=== PATIENT | female | born 1965 | race Caucasian/White ===

== ENCOUNTER 2017-08-21 22:27 | Inpatient (IN) | payer OTHER, MEDICARE ==
[~2017-08-21] VITALS: Ht 160 cm; Wt 75.7 kg
[2017-08-21 22:33] VITALS: BP 96/63; PULSE 74; RESP 16; TEMP 97.4; O2SAT 97
[2017-08-21] MEDS ORDERED: NALOXONE HCL 0.4 MG/ML AMP ONE (22:42)
[2017-08-21] MEDS ORDERED: SODIUM CHLOR 0.9% 1000 ML INJ 1,000 ML IV ONE (22:48)
[2017-08-21 22:59] VITALS: RESP 17; O2SAT 95
[2017-08-21] MEDS ORDERED: NALOXONE HCL 0.4 MG/ML AMP IV PUSH ONE (23:00)
[2017-08-21] MEDS ORDERED: SODIUM CHLORIDE 0.9% FLUSH 10 ML FLUSH IVF PRN (23:00)
--- NOTE | 2017-08-21 23:17 | RADRPT ---
EXAM DATE/TIME: 08/21/2017 22:53 [place] COMPARISON: No previous studies available for comparison. INDICATIONS : Short of breath. MEDICAL HISTORY : None. SURGICAL HISTORY : None. ENCOUNTER: Initial ACUITY: 1 day PAIN SCORE: 0/10 LOCATION: Bilateral chest FINDINGS: A single view of the chest demonstrates the lungs to be symmetrically aerated without evidence of mas s, infiltrate or effusion. Mild basilar atelectasis. Previous fusion cervical spine. The cardiomedia stinal contours are unremarkable. Osseous structures are intact. CONCLUSION: 1. Mild basilar atelectasis. No effusion or pneumothorax. Eulogio Rabago MD on August 21, 2017 at 23:13 Board Certified Radiologist. This report was verified electronically.
--- NOTE | 2017-08-21 23:53 | PD ---
HPI Chief Complaint: OD/ Ingestion Time Seen by Provider: 22:48 Travel History International Travel<30 days: No Contact w/Intl Traveler<30days: No Traveled to known affect area: No History of Present Illness HPI 52-year-old female presents to the emergency department by EMS transport from home after boyfriend called the police stating that patient had intentionally overdosed and he was concerned about her. Patient here admits to overdosing on Zoloft and Klonopin after having an argument with her boyfriend. Patient states she does not want to live and did this intentionally. Patient denies other concerns or complaints. Patient states she ingested an unknown amount of mixed tablets from a large bottle around 4 or 5 PM. Patient also admits to drinking alcohol heavily today. PFS Past Medical History Narrative Medical Anxiety depression; tobacco use alcohol use; nursing notes reviewed Medical History: Unable to Obtain ?: Unknown Past Surgical History Surgical History: Unable to Obtain Social History Alcohol Use: Yes Tobacco Use: Yes Substance Use: No Allergies-Medications (Allergen,Severity, Reaction): Coded Allergies: No Known Allergies (Unverified , 08/21/17) Reported Meds & Prescriptions Reported Meds & Active Scripts Active Active Prescriptions or Reported Medications Unobtainable Review of Systems ROS Limitations: Clinical Condition, Altered Mental Status Physical Exam Narrative GENERAL: Well-developed well-nourished drowsy female in no acute respiratory distress mildly hypotensive triage blood pressure 99/56; [id number]. SKIN: Warm and dry. HEAD: Atraumatic. Normocephalic. EYES: Pupils equal and round. No scleral icterus. No injection or drainage. ENT: No nasal bleeding or discharge. Mucous membranes pink and moist. NECK: Trachea midline. No JVD. CARDIOVASCULAR: Regular rate and rhythm. RESPIRATORY: No accessory muscle use. Clear to auscultation. Breath sounds equal bilaterally. GASTROINTESTINAL: Abdomen soft, non-tender, nondistended. Hepatic and splenic margins not palpable. MUSCULOSKELETAL: Extremities without clubbing, cyanosis, or edema. No obvious deformities. NEUROLOGICAL: Awake and drowsy. No obvious cranial nerve deficits. Motor grossly within normal limits. Five out of 5 muscle strength in the arms and legs. Normal speech. PSYCHIATRIC: Appropriate mood and affect; insight and judgment normal. Data Data Last Documented VS Vital Signs Date Time Temp Pulse Resp B/P (MAP) Pulse Ox O2 Delivery O2 Flow Rate FiO2 08/22/17 01:11 78 16 101/60 (74) 99 Room Air 08/21/17 22:33 97.4 Orders Orders Naloxone Inj (Narcan Inj) (08/21/17 22:42) Electrocardiogram (08/21/17 22:48) Complete Blood Count With Diff (08/21/17 22:48) Comprehensive Metabolic Panel (08/21/17 22:48) Prothrombin Time / Inr (Pt) (08/21/17 22:48) Act Partial Throm Time (Ptt) (08/21/17 22:48) Urinalysis - C+S If Indicated (08/21/17 22:48) Chest, Single Ap (08/21/17 22:48) Blood Glucose (08/21/17 22:48) Iv Access Insert/Monitor (08/21/17 22:48) Ecg Monitoring (08/21/17 22:48) Oximetry (08/21/17 22:48) Naloxone Inj (Narcan Inj) (08/21/17 23:00) Sodium Chloride 0.9% Flush (Ns Flush) (08/21/17 23:00) Sodium Chlor 0.9% 1000 Ml Inj (Ns 1000 M (08/21/17 22:48) Call Poison Control (08/21/17 22:48) Drug Screen, Random Urine (08/21/17 22:48) Alcohol (Ethanol) (08/21/17 22:48) Salicylates (Aspirin) (08/21/17 22:48) Tylenol (Acetaminophen) (08/21/17 22:48) Sodium Chlor 0.9% 1000 Ml Inj (Ns 1000 M (08/22/17 01:00) Sodium Chlor 0.9% 1000 Ml Inj (Ns 1000 M (08/22/17 01:15) Admit Order (Ed Use Only) (08/22/17 ) Rhinologist / Telemetry PEGGY.Q8H (08/22/17 01:49) Activity Bed Rest (08/22/17 01:49) Notify Dr: Other (08/22/17 01:49) Admit To Inpatient (08/22/17 ) Vital Signs (Adult) Q4H (08/22/17 01:49) Activity Oob With Assistance (08/22/17 01:49) Rhinologist / Telemetry .CONTINUOUS (08/22/17 01:49) Sodium Chlor 0.9% 1000 Ml Inj (Ns 1000 M (08/22/17 01:49) Sodium Chloride 0.9% Flush (Ns Flush) (08/22/17 02:00) Sodium Chloride 0.9% Flush (Ns Flush) (08/22/17 09:00) Acetaminophen (Tylenol) (08/22/17 02:00) Naloxone Inj (Narcan Inj) (08/22/17 02:00) Docusate Sodium-Senna (Traci-Colace) (08/22/17 09:00) Magnesium Hydroxide Liq (Milk Of Magnesi (08/22/17 02:00) Sennosides (Senokot) (08/22/17 02:00) Bisacodyl Supp (Dulcolax Supp) (08/22/17 02:00) Lactulose Liq (Lactulose Liq) (08/22/17 02:00) Inpatient Certification (08/22/17 ) Consult Psychiatry (08/22/17 ) Ondansetron Odt (Zofran Odt) (08/22/17 02:00) Labs Laboratory Tests Test 08/22/17 00:22 White Blood Count 8.4 TH/MM3 Red Blood Count 4.91 MIL/MM3 Hemoglobin 15.0 GM/DL Hematocrit 44.2 % Mean Corpuscular Volume 89.9 FL Mean Corpuscular Hemoglobin 30.6 PG Mean Corpuscular Hemoglobin Concent 34.0 % Red Cell Distribution Width 13.3 % Platelet Count 283 TH/MM3 Mean Platelet Volume 7.2 FL Neutrophils (%) (Auto) 47.6 % Lymphocytes (%) (Auto) 43.5 % Monocytes (%) (Auto) 6.7 % Eosinophils (%) (Auto) 1.3 % Basophils (%) (Auto) 0.9 % Neutrophils # (Auto) 4.0 TH/MM3 Lymphocytes # (Auto) 3.7 TH/MM3 Monocytes # (Auto) 0.6 TH/MM3 Eosinophils # (Auto) 0.1 TH/MM3 Basophils # (Auto) 0.1 TH/MM3 CBC Comment DIFF FINAL Differential Comment Prothrombin Time 9.7 SEC Prothromb Time International Ratio 1.0 RATIO Activated Partial Thromboplast Time 27.5 SEC Urine Color YELLOW Urine Turbidity CLEAR Urine pH 5.0 Urine Specific [place] 1.013 Urine Protein NEG mg/dL Urine Glucose (UA) NEG mg/dL Urine Ketones NEG mg/dL Urine Occult Blood TRACE Urine Nitrite NEG Urine Bilirubin NEG Urine Urobilinogen LESS THAN 2.0 MG/DL Urine Leukocyte Esterase NEG Urine RBC LESS THAN 1 /hpf Urine WBC 1 /hpf Urine Hyaline Casts 6 /lpf Urine Mucus FEW /lpf Microscopic Urinalysis Comment CULT NOT INDICATED Blood Urea Nitrogen 9 MG/DL Creatinine 0.62 MG/DL Random Glucose 81 MG/DL Total Protein 7.1 GM/DL Albumin 3.7 GM/DL Calcium Level 8.2 MG/DL Alkaline Phosphatase 67 U/L Aspartate Amino Transf (AST/SGOT) 19 U/L Alanine Aminotransferase (ALT/SGPT) 25 U/L Total Bilirubin 0.3 MG/DL Sodium Level 142 MEQ/L Potassium Level 3.5 MEQ/L Chloride Level 106 MEQ/L Carbon Dioxide Level 24.7 MEQ/L Anion Gap 11 MEQ/L Estimat Glomerular Filtration Rate 100 ML/MIN Salicylates Level 3.1 MG/DL Urine Opiates Screen NEG Acetaminophen Level LESS THAN 2.0 MCG/ML Urine Barbiturates Screen NEG Urine Amphetamines Screen NEG Urine Benzodiazepines Screen POS Urine Cocaine Screen NEG Urine Cannabinoids Screen NEG Ethyl Alcohol Level 118 MG/DL [facility] Medical Decision Making Medical Screen Exam Complete: Yes Emergency Medical Condition: Yes Medical Record Reviewed: Yes Interpretation(s) Alcohol: 118 Urine drug screen positive for benzodiazepines Last Impressions Chest X-Ray 08/21/17 2248 Signed Impressions: Service Date/Time: Monday, August 21, 2017 22:53 - CONCLUSION: 1. Mild basilar atelectasis. No effusion or pneumothorax. Eulogio Rabago MD CBC & BMP Diagram 08/22/17 00:22 Total Protein 7.1, Albumin 3.7, Calcium Level 8.2 L, Alkaline Phosphatase 67, Aspartate Amino Transf (AST/SGOT) 19, Alanine Aminotransferase (ALT/SGPT) 25, Total Bilirubin 0.3 Vital Signs Date Time Temp Pulse Resp B/P (MAP) Pulse Ox O2 Delivery O2 Flow Rate FiO2 08/22/17 01:11 78 16 101/60 (74) 99 Room Air 08/22/17 01:04 79 16 84/52 (63) 97 Room Air 08/21/17 22:59 17 95 Room Air 08/21/17 22:33 97.4 74 16 96/63 (93) 19 Differential Diagnosis Polysubstance ingestion, intentional versus accidental overdose, alcohol intoxication, depression, suicidal ideation, serotonin syndrome, metabolic disturbance, electrolyte disturbance, arrhythmia Narrative Course Patient placed on pvc monitor IV access obtained patient administered 1 L normal saline also normal Narcan 0.4 mg IV with minimal effect Poison control contacted Patient administered additional liter of normal saline systolic blood pressure 84 mmHg mentation unchanged GCS 14 to 15 At 1:40 AM patient has had issues where she is and why she is here. She is aware she is at the hospital she noticed that yesterday she intentionally took sertraline and Klonopin as an overdose along with alcohol after having an argument/fight with her significant other. Patient's blood pressure has improved after a total of 3 L of normal saline. Patient will require medical admission to clear effects of polysubstance ingestion for ongoing cardiac monitoring and observation and then will require evaluation by psychiatry for depression and suicidal ideation. Patient is a Bravo act. Physician Communication Physician Communication discussed with Dr Whitman for admission Diagnosis Primary Impression: Polysubstance overdose Qualified Codes: T50.902A - Poisoning by unspecified drugs, medicaments and biological substances, intentional self-harm, initial encounter Additional Impression: Depression Admitting Information Admitting Physician Requests: Admit Scripts Unable to Obtain Active Prescriptions or Reported Meds Octavia Menendez MD August 21, 2017 23:53
[2017-08-22] VITALS (7 sets, daily range): BP systolic 84–125; BP diastolic 52–78; PULSE 57–88; RESP 16; TEMP 97.1–98.7; O2SAT 93–99
[2017-08-22 00:40] LABS: BASOPHIL # 0.1 TH/MM3 (0-0.2); BASOPHIL % 0.9 % (0.0-2.0); EOSINOPHIL # 0.1 TH/MM3 (0-0.4); EOSINOPHIL % 1.3 % (0.0-4.0); HEMATOCRIT 44.2 % (35.0-46.0); LYMPH % 43.5 % (9.0-44.0); LYMPHOCYTE # 3.7 TH/MM3 (1.0-4.8); MEAN CELL VOLUME 89.9 FL (80.0-100.0); MEAN CORPUSCULAR HEMOGLOBIN 30.6 PG (27.0-34.0); MEAN PLATELET VOLUME 7.2 FL (7.0-11.0); MONO % 6.7 % (0.0-8.0); MONOCYTE # 0.6 TH/MM3 (0-0.9); NEUT % 47.6 % (16.0-70.0); PLATELET COUNT 283 TH/MM3 (150-450); RED BLOOD COUNT 4.91 MIL/MM3 (4.00-5.30); RED CELL DISTRIBUTION WIDTH 13.3 % (11.6-17.2); WHITE BLOOD COUNT 8.4 TH/MM3 (4.0-11.0)
[2017-08-22 00:46] LABS: BILIRUBIN, URINE NEG (NEG); BLOOD, URINE TRACE (NEG); GLUCOSE,URINE NEG (NEG); HYALINE CAST, URINE 6 /lpf (RARE); KETONE, URINE NEG (NEG); MUCUS URINE FEW /lpf (OCC); NITRITE,URINE NEG (NEG); URINE COLOR YELLOW (YELLW/STRAW); URINE LEUKOCYTE ESTERASE NEG (NEG)
[2017-08-22 00:59] LABS: ALBUMIN 3.7 GM/DL (3.4-5.0); ALT (GPT) 25 U/L (10-53); AST (GOT) 19 U/L (15-37); BICARBONATE 24.7 MEQ/L (21.0-32.0); BLOOD UREA NITROGEN 9 MG/DL (7-18); CALCIUM 8.2 MG/DL (8.5-10.1); CHLORIDE 106 MEQ/L (98-107); CREATININE 0.62 MG/DL (0.50-1.00); GLOMERULAR FILTRATION RATE 100 ML/MIN (>89); GLUCOSE,RANDOM 81 MG/DL (74-106); PROTHROMBIN TIME - PATIENT 9.7 SEC (9.8-11.6); SODIUM (NA) 142 MEQ/L (136-145)
[2017-08-22] MEDS ORDERED: SODIUM CHLOR 0.9% 1000 ML INJ 1,000 ML IV ONE ×2 (01:00→01:15)
[2017-08-22 01:02] LABS: ALKALINE PHOSPHATASE 67 U/L (45-117); TOTAL BILIRUBIN ADULT 0.3 MG/DL (0.2-1.0); TOTAL PROTEIN 7.1 GM/DL (6.4-8.2)
[2017-08-22 01:03] LABS: ACETAMINOPHEN LESS THAN 2.0 MCG/ML (10.0-30.0)
[2017-08-22] MEDS ORDERED: SODIUM CHLORIDE 0.9% FLUSH 10 ML FLUSH IV FLUSH PRN (02:00)
[2017-08-22] MEDS ORDERED: ACETAMINOPHEN 325 MG TAB PO PRN (02:00)
[2017-08-22] MEDS ORDERED: BISACODYL 10 MG SUPP RECTAL PRN (02:00)
[2017-08-22] MEDS ORDERED: LACTULOSE SYRUP 20 GM/30 ML CUP PO PRN (02:00)
[2017-08-22] MEDS ORDERED: MAGNESIUM HYDROXIDE SUSP 30 ML CUP PO PRN (02:00)
[2017-08-22] MEDS ORDERED: SENNOSIDES 8.6 MG TAB PO PRN (02:00)
[2017-08-22] MEDS ORDERED: NALOXONE HCL 0.4 MG/ML AMP IV PUSH PRN (02:00)
[2017-08-22] MEDS ORDERED: ONDANSETRON ODT 4 MG TAB PO PRN (02:00)
[2017-08-22] MEDS: SODIUM CHLOR 0.9% 1000 ML INJ 1,000 ML IV SCH ×2 (02:13→11:49)
[2017-08-22] MEDS ORDERED: DOCUSATE SODIUM 50 MG/SENNA 8.6 MG TAB PO SCH (09:00)
[2017-08-22] MEDS ORDERED: SODIUM CHLORIDE 0.9% FLUSH 10 ML FLUSH IV FLUSH SCH (09:00)
--- NOTE | 2017-08-22 09:57 | HHI.HP ---
[facility] Unknown Admission Diagnosis polysubtance overdose; depression/suicidal ideation Diagnoses: Chief Complaint: Taking a bunch of pills Travel History International Travel<30 Days: No Contact w/Intl Traveler <30 Da: No Traveled to Known Affected Are: No History of Present Illness 52-year-old white female admitted for intentional drug overdose. History is obtained from emergency room records, partially from the patient, patient is a poor historian. Per the emergency room department, patient was brought to the emergency department, told emergency room physician that she intentionally took drugs wanting to kill herself in the midst of an argument with her boyfriend. At the bedside today the patient affirms that she had an organ with her boyfriend and does admit to taking a "handful" of sertraline and Klonopin, unable to exactly quantify how many pills, but says she was not trying to kill herself. When asked if she endorsed suicidal ideation to the emergency room department staff, she says she does not know. Patient denies any nausea vomiting diarrhea. Says that her Klonopin pills are 1 mg each and took at least 5 of those. Says she takes Klonopin for anxiety. Denies any other substantial medical illnesses otherwise. Emergency department records detail that the patient had a systolic blood pressure around 84, which normalized after 3 L of normal saline. Blood work in the emergency department is unremarkable except for an elevated blood alcohol level. Review of Systems Except as stated in HPI: all other systems reviewed are Neg Past Family Social History Past Medical History Anxiety Allergies: Coded Allergies: No Known Allergies (Unverified , 08/21/17) Family History Uterine cancer in sister Social History Lives with her boyfriend Jesús. 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 Currently smokes. Says he drinks about 5 beers about once or twice a month. Physical Exam Vital Signs Vital Signs Date Time Temp Pulse Resp B/P (MAP) Pulse Ox O2 Delivery O2 Flow Rate FiO2 08/22/17 08:00 98.0 63 16 101/65 (77) 93 08/22/17 08:00 66 08/22/17 04:31 97.1 74 16 105/65 (78) 94 08/22/17 03:43 08/22/17 03:39 88 16 104/55 (71) 93 08/22/17 01:11 78 16 101/60 (74) 99 Room Air 08/22/17 01:04 79 16 84/52 (63) 97 Room Air 08/21/17 22:59 17 95 Room Air 08/21/17 22:33 97.4 74 16 96/63 (74) 97 Physical Exam VS: afebrile GENERAL: Lying in bed, drowsy SKIN: Warm and dry. EYES: Pupils equal and round. No scleral icterus. No injection or drainage. ENT: No nasal bleeding or discharge. Mucous membranes pink and moist. CARDIOVASCULAR: Regular rate and rhythm. no murmurs RESPIRATORY: No accessory muscle use. Clear to auscultation. Breath sounds equal bilaterally. GASTROINTESTINAL: Abdomen soft, non-tender, nondistended. Extremities: No clubbing, cyanosis, or edema. No obvious deformities. MUSCULOSKELETAL: grossly intact ROM with 4/5 strength in upper extremities proximally, 5 out of 5 in lower extremities proximally NEUROLOGICAL: Sleeping, awoken, seems drowsy; no obvious cranial nerve deficits. No facial droop nor slurred speech noted. Brisk 2+ patellar reflexes bilaterally PSYCHIATRIC: Appropriate mood and affect; insight and judgment normal. Laboratory Laboratory Tests Test 08/22/17 00:22 White Blood Count 8.4 Red Blood Count 4.91 Hemoglobin 15.0 Hematocrit 44.2 Mean Corpuscular Volume 89.9 Mean Corpuscular Hemoglobin 30.6 Mean Corpuscular Hemoglobin Concent 34.0 Red Cell Distribution Width 13.3 Platelet Count 283 Mean Platelet Volume 7.2 Neutrophils (%) (Auto) 47.6 Lymphocytes (%) (Auto) 43.5 Monocytes (%) (Auto) 6.7 Eosinophils (%) (Auto) 1.3 Basophils (%) (Auto) 0.9 Neutrophils # (Auto) 4.0 Lymphocytes # (Auto) 3.7 Monocytes # (Auto) 0.6 Eosinophils # (Auto) 0.1 Basophils # (Auto) 0.1 CBC Comment DIFF FINAL Differential Comment Prothrombin Time 9.7 Prothromb Time International Ratio 1.0 Activated Partial Thromboplast Time 27.5 Urine Color YELLOW Urine Turbidity CLEAR Urine pH 5.0 Urine Specific [place] 1.013 Urine Protein NEG Urine Glucose (UA) NEG Urine Ketones NEG Urine Occult Blood TRACE Urine Nitrite NEG Urine Bilirubin NEG Urine Urobilinogen LESS THAN 2.0 Urine Leukocyte Esterase NEG Urine RBC LESS THAN 1 Urine WBC 1 Urine Hyaline Casts 6 Urine Mucus FEW Microscopic Urinalysis Comment CULT NOT INDICATED Blood Urea Nitrogen 9 Creatinine 0.62 Random Glucose 81 Total Protein 7.1 Albumin 3.7 Calcium Level 8.2 Alkaline Phosphatase 67 Aspartate Amino Transf (AST/SGOT) 19 Alanine Aminotransferase (ALT/SGPT) 25 Total Bilirubin 0.3 Sodium Level 142 Potassium Level 3.5 Chloride Level 106 Carbon Dioxide Level 24.7 Anion Gap 11 Estimat Glomerular Filtration Rate 100 Salicylates Level 3.1 Urine Opiates Screen NEG Acetaminophen Level LESS THAN 2.0 Urine Barbiturates Screen NEG Urine Amphetamines Screen NEG Urine Benzodiazepines Screen POS Urine Cocaine Screen NEG Urine Cannabinoids Screen NEG Ethyl Alcohol Level 118 Result Diagram: 08/22/17 0022 08/22/17 0022 Imaging Last Impressions Chest X-Ray 08/21/17 2248 Signed Impressions: Service Date/Time: Monday, August 21, 2017 22:53 - CONCLUSION: 1. Mild basilar atelectasis. No effusion or pneumothorax. Eulogio Rabago MD Caprini VTE Risk Assessment Caprini VTE Risk Assessment: No/Low Risk (score <= 1) Caprini Risk Assessment Model Point Value = 1 Point Value = 2 Point Value = 3 Point Value = 5 Age 41-60 Minor surgery BMI > 25 kg/m2 Swollen legs Varicose veins or History of unexplained or recurrent spontaneous Oral contraceptives or hormone replacement Sepsis (< 1 month) Serious lung disease, including pneumonia (< 1 month) Abnormal pulmonary function Acute myocardial infarction Congestive heart failure (< 1 month) History of inflammatory bowel disease Medical patient at bed rest Age 61-74 Arthroscopic surgery Major open surgery (> 45 min) Laparoscopic surgery (> 45 min) Malignancy Confined to bed (> 72 hours) Immobilizing plaster cast Central venous access Age >= 75 History of VTE Family history of VTE Factor V Leiden Prothrombin [id number] Lupus anticoagulant Anticardiolipin antibodies Elevated serum homocysteine Heparin-induced thrombocytopenia Other congenital or acquired thrombophilia Stroke (< 1 month) Elective arthroplasty Hip, pelvis, or leg fracture Acute spinal cord injury (< 1 month) Prophylaxis Regimen Total Risk Factor Score Risk Level Prophylaxis Regimen 0-1 Low Early ambulation 2 Moderate Order ONE of the following: *Sequential Compression Device (SCD) *Heparin 5000 units SQ BID 3-4 Higher Order ONE of the following medications: *Heparin 5000 units SQ TID *Enoxaparin/Lovenox 40 mg SQ daily (WT < 150 kg, CrCl > 30 mL/min) *Enoxaparin/Lovenox 30 mg SQ daily (WT < 150 kg, CrCl > 10-29 mL/min) *Enoxaparin/Lovenox 30 mg SQ BID (WT < 150 kg, CrCl > 30 mL/min) AND/OR *Sequential Compression Device (SCD) 5 or more Highest Order ONE of the following medications: *Heparin 5000 units SQ TID (Preferred with Epidurals) *Enoxaparin/Lovenox 40 mg SQ daily (WT < 150 kg, CrCl > 30 mL/min) *Enoxaparin/Lovenox 30 mg SQ daily (WT < 150 kg, CrCl > 10-29 mL/min) *Enoxaparin/Lovenox 30 mg SQ BID (WT < 150 kg, CrCl > 30 mL/min) AND *Sequential Compression Device (SCD) Assessment and Plan Assessment and Plan 52-year-old white female admitted for drug overdose Drug overdose -Poison control contacted emergently by the emergency department staff, placed on supportive care with IV fluids and telemetry -Blood work so far is unremarkable, EKG which had been reviewed is also unremarkable -Clinically stable overall apart from some drowsiness Suspected intentional overdose -Patient placed on Bravo act, psychiatry consultation pending SCDs Addendum: Patient has had a relatively smooth recovery from her drug overdose faster than expected. Is medically stable to be discharged to med/psych. Physician Certification 2 Midnight Certification Type: Admission for Inpatient Services Order for Inpatient Services The services are ordered in accordance with Medicare regulations or non- Medicare payer requirements, as applicable. In the case of services not specified as inpatient-only, they are appropriately provided as inpatient services in accordance with the 2-midnight benchmark. Estimated LOS (days): 2 2 days is the estimated time the patient will need to remain in the hospital, assuming treatment plan goals are met and no additional complications. Post-Hospital Plan: Not yet determined Johnson Coates MD August 22, 2017 09:57
--- NOTE | 2017-08-22 14:03 | PD.PSY.CON ---
Provisional Diagnosis Admission Date August 22, 2017 at 01:52 Arco I. Major depressive disorder, recurrent, severe, without psychosis, panic disorder , alcohol use disorder Arco II. Deferred Arco III. No significant medical history Arco IV. Conflict with fianc conflicts with fianc Arco V. 40 History of Present Illness Service Psychiatry Consult Requested By Medicine Reason for Consult Suicidal attempt Primary Care Physician Unknown HPI The patient is a 52-year-old woman, domiciled in [place] with her fianc, unemployed, with psychiatric history of depression, panic disorder, 1 previous psychiatric hospitalization in 1987 in [place], one previous suicide attempt by overdosing, the patient reports that she is in clonazepam 1 mg 3 times daily prescribed by PCP, no significant medical history, who was admitted for intentional drug overdose. History obtained from emergency room records, partially from the patient, patient is a poor historian.Per the emergency room department, patient was brought to the emergency department, told emergency room physician that she intentionally took drugs wanting to kill herself in the midst of an argument with her boyfriend. At the bedside today the patient affirms that she had an organ with her boyfriend and does admit to taking a "handful" of sertraline and Klonopin, unable to exactly quantify how many pills, but says she was not trying to kill herself. When asked if she endorsed suicidal ideation to the emergency room department staff, she says she does not know. Patient denies any nausea vomiting diarrhea. Says that her Klonopin pills are 1 mg each and took at least 5 of those. Says she takes Klonopin for anxiety. Denies any other substantial medical illnesses otherwise. Emergency department records detail that the patient had a systolic blood pressure around 84, which normalized after 3 L of normal saline. Blood work in the emergency department is unremarkable except for an elevated blood alcohol level. On psychiatric evaluation today the patient is oppositional, superficially cooperative, she reports that she overdosed with suicidal intention after an argument with fianc. Patient does not elaborate about the recent circumstances behind her emotions and because of her argument. She said that she is tired or living. She says that she is tired of her boyfriend. The patient contracted for safety, stating that she does not want to anymore, but she does not seem to be quite reliable. She is oriented 3. She reports occasional use of alcohol, denies the use of illegal drugs. Review of Systems Constitutional: DENIES: Diaphoretic episodes, Fatigue, Fever, Weight gain, Weight loss, Chills, Dizziness, Change in appetite, Night Sweats Endocrine: DENIES: Abnorml menstrual pattern, Heat/cold intolerance, Polydipsia , Polyuria, Polyphagia Eyes: DENIES: Blurred vision, Diplopia, Eye inflammation, Eye pain, Vision loss , Photosensitivity, Double Vision Ears, nose, mouth, throat: DENIES: Tinnitus, Hearing loss, Vertigo, Nasal discharge, Oral lesions, Throat pain, Hoarseness, Ear Pain, Running Nose, Epistaxis, Sinus Pain, Toothache, Odynophagia Respiratory: DENIES: Apneas, Cough, Snoring, Wheezing, Hemoptysis, Sputum production, Shortness of breath Cardiovascular: DENIES: Chest pain, Palpitations, Syncope, Dyspnea on Exertion , PND, Lower Extremity Edema, Orthopnea, Claudication Gastrointestinal: DENIES: Abdominal pain, Black stools, Bloody stools, Constipation, Diarrhea, Nausea, Vomiting, Difficulty Swallowing, Anorexia Genitourinary: DENIES: Abnormal vaginal bleeding, Dysmenorrhea, Dyspareunia, Sexual dysfunction, Urinary frequency, Urinary incontinence, Urgency, Hematuria , Dysuria, Nocturia, Vaginal discharge Musculoskeletal: DENIES: Joint pain, Muscle aches, Stiffness, Joint Swelling, Back pain, Neck pain Integumentary: DENIES: Abnormal pigmentation, Pruritus, Rash, Nail changes, Breast masses, Breast skin changes, Nipple discharge Hematologic/lymphatic: DENIES: Bruising, Lymphadenopathy Immunologic/allergic: DENIES: Eczema, Urticaria Neurologic: DENIES: Abnormal gait, Headache, Localized weakness, Paresthesias, Seizures, Speech Problems, Tremor, Poor Balance Psychiatric: COMPLAINS OF: Depression, Suicidal Ideation, DENIES: Anxiety, Confusion, Mood changes, Hallucinations, Agitation, Homicidal Ideation, Delusions Past Family Social History Coded Allergies: No Known Allergies (Unverified , 08/21/17) Unable to Obtain Active Prescriptions or Reported Meds Current Medications Medications (Trade) Dose Ordered Sig/Fred Route Start Time Stop Time Status Last Admin Sodium Chloride 1,000 ml @ 100 mls/hr Q10H IV 08/22/17 01:49 08/22/17 02:13 (NS Flush) 2 ml UNSCH PRN IV FLUSH 08/22/17 02:00 (NS Flush) 2 ml BID IV FLUSH 08/22/17 09:00 (Tylenol) 650 mg Q4H PRN PO 08/22/17 02:00 (Zofran Odt) 4 mg Q6H PRN PO 08/22/17 02:00 (Narcan Inj) 0.4 mg UNSCH PRN IV PUSH 08/22/17 02:00 (Traci-Colace) 1 tab BID PO 08/22/17 09:00 (Milk Of Magnesia Liq) 30 ml Q12H PRN PO 08/22/17 02:00 (Senokot) 17.2 mg Q12H PRN PO 08/22/17 02:00 (Dulcolax Supp) 10 mg DAILY PRN RECTAL 08/22/17 02:00 (Lactulose Liq) 30 ml DAILY PRN PO 08/22/17 02:00 (Pneumovax-23 Inj) 25 mcg ONCE ONCE IM 08/23/17 10:00 08/23/17 10:01 Family Psych History Mother has anxiety Social History Patient was born in [place], she lives in [facility], unemployed, she has a 32 y/ o daughter Patient's Strengths (min. 2) Under observation Physical Exam Patient is sedated, psychomotor retardation Vital Signs Vital Signs Date Time Temp Pulse Resp B/P (MAP) Pulse Ox O2 Delivery O2 Flow Rate FiO2 08/22/17 12:00 98.7 62 16 113/75 (88) 93 08/22/17 01:11 Room Air I/O 08/22/17 08/22/17 08/23/17 08:00 16:00 00:00 Intake Total 3000 ml Balance 3000 ml Lab Results Test 08/22/17 00:22 White Blood Count 8.4 TH/MM3 Red Blood Count 4.91 MIL/MM3 Hemoglobin 15.0 GM/DL Hematocrit 44.2 % Mean Corpuscular Volume 89.9 FL Mean Corpuscular Hemoglobin 30.6 PG Mean Corpuscular Hemoglobin Concent 34.0 % Red Cell Distribution Width 13.3 % Platelet Count 283 TH/MM3 Mean Platelet Volume 7.2 FL Neutrophils (%) (Auto) 47.6 % Lymphocytes (%) (Auto) 43.5 % Monocytes (%) (Auto) 6.7 % Eosinophils (%) (Auto) 1.3 % Basophils (%) (Auto) 0.9 % Neutrophils # (Auto) 4.0 TH/MM3 Lymphocytes # (Auto) 3.7 TH/MM3 Monocytes # (Auto) 0.6 TH/MM3 Eosinophils # (Auto) 0.1 TH/MM3 Basophils # (Auto) 0.1 TH/MM3 CBC Comment DIFF FINAL Differential Comment Prothrombin Time 9.7 SEC Prothromb Time International Ratio 1.0 RATIO Activated Partial Thromboplast Time 27.5 SEC Urine Color YELLOW Urine Turbidity CLEAR Urine pH 5.0 Urine Specific Steward[place] 1.013 Urine Protein NEG mg/dL Urine Glucose (UA) NEG mg/dL Urine Ketones NEG mg/dL Urine Occult Blood TRACE Urine Nitrite NEG Urine Bilirubin NEG Urine Urobilinogen LESS THAN 2.0 MG/DL Urine Leukocyte Esterase NEG Urine RBC LESS THAN 1 /hpf Urine WBC 1 /hpf Urine Hyaline Casts 6 /lpf Urine Mucus FEW /lpf Microscopic Urinalysis Comment CULT NOT INDICATED Blood Urea Nitrogen 9 MG/DL Creatinine 0.62 MG/DL Random Glucose 81 MG/DL Total Protein 7.1 GM/DL Albumin 3.7 GM/DL Calcium Level 8.2 MG/DL Alkaline Phosphatase 67 U/L Aspartate Amino Transf (AST/SGOT) 19 U/L Alanine Aminotransferase (ALT/SGPT) 25 U/L Total Bilirubin 0.3 MG/DL Sodium Level 142 MEQ/L Potassium Level 3.5 MEQ/L Chloride Level 106 MEQ/L Carbon Dioxide Level 24.7 MEQ/L Anion Gap 11 MEQ/L Estimat Glomerular Filtration Rate 100 ML/MIN Salicylates Level 3.1 MG/DL Urine Opiates Screen NEG Acetaminophen Level LESS THAN 2.0 MCG/ML Urine Barbiturates Screen NEG Urine Amphetamines Screen NEG Urine Benzodiazepines Screen POS Urine Cocaine Screen NEG Urine Cannabinoids Screen NEG Ethyl Alcohol Level 118 MG/DL Mental Status Examination Appearance: Appropriate Consciousness: Alert Orientation: x4 Motor Activity: Normal gait Speech: Unremarkable Language: Adequate Fund of Knowledge: Adequate Attention and Concentration: Adequate Memory: Unremarkable Mood: Sad, Oppositional Affect: Irritable Thought Process & Associations: Intact Thought Content: Appropriate Hallucination Type: None Delusion Type: None Suicidal Ideation: Yes Suicidal Plan: No Suicidal Intention: No Homicidal Ideation: No Homicidal Plan: No Homicidal Intention: No Insight: Poor Judgment: Poor Assessment & Plan Problem List: (1) Major depressive disorder, recurrent ICD Codes: F33.9 - Major depressive disorder, recurrent, unspecified Assessment & Plan: On psychiatric evaluation the patient is oppositional, resistant, very irritable, stating that she overdosed with suicidal intentions because "I am tired of my fianc on my life". The patient does not elaborate about the reason of her frustration and depression. Even though she denies current suicidal ideation, she does not seem to be reliable. The patient is a psychiatric hospitalization for stabilization and safety. Continue CIWA protocol. No additional psychotropics recommended at this moment. Supportive psychotherapy provided. Continue with a sitter in the medical floor. Transfer to psychiatry once medically appropriate. Assessment & Plan Estimated LOS: days Shaquille Reese MD August 22, 2017 14:03
--- NOTE | 2017-08-22 18:01 | EKG ---
Date Performed: 08/21/2017 Time Performed: 22:39:04 PTAGE: 52 years EKG: Sinus rhythm NORMAL ECG NO PREVIOUS TRACING DOCTOR: Dennise Sandoval Interpretating Date/Time 08/22/2017 17:59:57
[2017-08-23] MEDS ORDERED: PNEUMOCOCCAL POLYVALENT INJ 25 MCG/0.5 ML SYR IM ONE (10:00)
== END 2017-08-22 19:13 | DRG 918 ==
LOC: NEPC 22:27 → NEDA 08-22 01:52 → N04A 08-22 03:53
PROVIDERS: ADMIT Hospitalist; ATTEND Hospitalist
DX: T43.222A Poisoning by selective serotonin reuptake inhibitors, intentional self-harm, initial encounter (principal); F33.9 Major depressive disorder, recurrent, unspecified; I95.2 Hypotension due to drugs; T42.4X2A Poisoning by benzodiazepines, intentional self-harm, initial encounter; T51.0X2A Toxic effect of ethanol, intentional self-harm, initial encounter; R41.82 Altered mental status, unspecified; F17.200 Nicotine dependence, unspecified, uncomplicated; F41.0 Panic disorder [episodic paroxysmal anxiety]; Y90.5 Blood alcohol level of 100-119 mg/100 ml; Z91.5 Personal history of self-harm
CPT/HCPCS: 71045; 80053; 80307; 81001; 85025; 85610; 85730; 93005; J2310; J7030

== ENCOUNTER 2017-08-22 19:50 | Inpatient (IN) | payer OTHER, MEDICARE ==
[2017-08-22 20:00] VITALS: BP 108/63; PULSE 61; RESP 16; TEMP 98; O2SAT 95
[2017-08-22] MEDS ORDERED: MAGNESIUM HYDROXIDE SUSP 30 ML CUP PO PRN (20:15)
[2017-08-22] MEDS ORDERED: ALUMINUM/MAGNESIUM/SIMETH 30 ML CUP PO PRN (20:15)
[2017-08-22] MEDS ORDERED: ACETAMINOPHEN 325 MG TAB PO PRN (20:15)
[2017-08-22] MEDS ORDERED: NICOTINE 21 MG/24 HR PATCH T-DERMAL PRN (20:15)
[2017-08-22] MEDS ORDERED: LORazepam 2 MG/ML VIAL IV PUSH PRN ×4 (20:15)
[2017-08-22] MEDS ORDERED: FLUMAZENIL 0.5 MG/5 ML VIAL IV PUSH PRN (20:15)
[2017-08-22] MEDS ORDERED: LORazepam 1 MG TAB PO PRN (20:15)
[2017-08-22] MEDS ORDERED: LORazepam 2 MG TAB PO PRN (20:15)
[2017-08-22] MEDS ORDERED: REMOVE OLD PATCH T-DERMAL PRN (21:15)
[2017-08-23 06:00] VITALS: BP 117/64; PULSE 61; RESP 14; TEMP 98.2; O2SAT 93
--- NOTE | 2017-08-23 08:47 | PD.CONS ---
[facility] By Reason for Consult Continue follow for medical floor Primary Care Physician Unknown Diagnoses: History of Present Illness 52-year-old female with past medical history significant for anxiety and depression who presented to emergency department on 08/22 after intentionally ingesting "handful" of sertraline and Klonopin. On presentation to the emergency department she was hypotensive with a systolic BP around 84, provided with fluid boluses. Poison control was contacted by emergency department staff , monitored on telemetry, lab work and EKG unremarkable. She was cleared medically to be discharged to medical psychiatry unit. [facility] have been consulted to continue monitoring while she is in psychiatry department. She is seen and examined in her room with sitter at bedside, resting with eyes closed but arouses easily to voice. She reports feeling better although still has some ongoing dizziness with changes of position which usually resolves after several seconds. She denies any fevers, chills, nausea, vomiting, diarrhea, headache, visual changes, chest pain, shortness of breath or cough. She reports no other medical history other than psychiatric history including anxiety, agoraphobia, and depression. She voices no other acute concerns or complaints today. Review of Systems Except as stated in HPI: all other systems reviewed are Neg Past Family Social History Allergies: Coded Allergies: No Known Allergies (Unverified , 08/21/17) Past Medical History Agoraphobia Anxiety Depression Past Surgical History Denies surgical history Reported Medications Reported Meds & Active Scripts Active Active Prescriptions or Reported Medications Unobtainable Active Ordered Medications Current Medications Medications (Trade) Dose Ordered Sig/Fred Route Start Time Stop Time Status Last Admin (Tylenol) 650 mg Q4H PRN PO 08/22/17 20:15 (Milk Of Magnesia Liq) 30 ml DAILY PRN PO 08/22/17 20:15 (Mag-Al Plus Susp Liq) 30 ml Q6H PRN PO 08/22/17 20:15 (Habitrol 21 Mg Patch.24 Hr) 1 patch DAILY PRN T-DERMAL 08/22/17 20:15 (Folate) 1 mg DAILY PO 08/23/17 09:00 08/28/17 08:59 08/23/17 09:00 (Vitamin B1) 100 mg DAILY PO 08/23/17 09:00 08/23/17 09:00 (Theragran M Tab) 1 tab DAILY PO 08/23/17 09:00 08/28/17 08:59 08/23/17 09:00 (Romazicon Inj) 0.2 mg Q1M PRN IV PUSH 08/22/17 20:15 (Ativan) 1 mg Q4H PRN PO 08/22/17 20:15 (Ativan Inj) 1 mg Q4H PRN IV PUSH 08/22/17 20:15 (Ativan) 2 mg Q2H PRN PO 08/22/17 20:15 (Ativan Inj) 2 mg Q2H PRN IV PUSH 08/22/17 20:15 (Ativan Inj) 2 mg Q1H PRN IV PUSH 08/22/17 20:15 (Ativan Inj) 2 mg Q15M PRN IV PUSH 08/22/17 20:15 Miscellaneous Information 1 DAILY PRN T-DERMAL 08/22/17 21:15 (Pneumovax-23 Inj) 25 mcg ONCE ONCE IM 08/24/17 10:00 08/24/17 10:01 (Atarax) 50 mg Q6H PRN PO 08/23/17 12:45 (Benadryl) 50 mg HS PRN PO 08/23/17 21:00 (Zoloft) 50 mg DAILY PO 08/23/17 12:45 08/23/17 12:45 (Buspar) 5 mg Q8HR PO 08/23/17 14:00 Family History Sister: Uterine cancer Social History Lives with boyfriend Tobacco, currently smokes daily Alcohol use: 5 beers once or twice a month Physical Exam Vital Signs Vital Signs Date Time Temp Pulse Resp B/P (MAP) Pulse Ox O2 Delivery O2 Flow Rate FiO2 08/23/17 06:00 98.2 61 14 117/64 (81) 93 08/22/17 20:00 98.0 61 16 108/63 (78) 95 Physical Exam GENERAL: This is a well-nourished, well-developed patient, in no apparent distress resting comfortably in bed. SKIN: No rashes, ecchymoses or lesions. Cool and dry. HEAD: Atraumatic. Normocephalic. EYES: Pupils equal round and reactive. Extraocular motions intact. No scleral icterus. No injection or drainage. ENT: Nose without bleeding, purulent drainage. Airway patent. NECK: Trachea midline. No JVD. CARDIOVASCULAR: Regular rate and rhythm without murmurs, gallops, or rubs. RESPIRATORY: Clear to auscultation. Breath sounds equal bilaterally. No wheezes , rales, or rhonchi. GASTROINTESTINAL: Abdomen soft, non-tender, nondistended. No palpable masses. No guarding. MUSCULOSKELETAL: Extremities without clubbing, cyanosis, or edema. No joint tenderness, effusion, or edema noted. No calf tenderness. NEUROLOGICAL: Awake and alert, oriented 3. Cranial nerves II through XII grossly intact. Motor and sensory grossly within normal limits. 5/5 muscle strength in all muscle groups. Normal speech. Assessment and Plan Assessment and Plan 52-year-old female with past medical history significant for agoraphobia, anxiety, and depression who presented to the emergency department on 08/22 after intentionally ingesting "handful" of sertraline and Klonopin. [facility] has been consulted to continue follow-up of patient while she is in medical psychiatry unit. Suicidal attempt/depression -Treatment plan per psychiatry OD attempt on Klonopin and sertraline -CBC from yesterday unremarkable, BMP from today stable. -Patient continues to be hemodynamically stable, continue monitoring heart rate and BP -Discussed with patient change of positions slowly -Patient doing relatively well, depending on how she does may consider transfer out of medical psychiatry unit. DVT prophylaxis-ambulation Discussed with patient and nurse. Thank you for this consultation, will continue to follow along. Bisi Arceo August 23, 2017 08:47
[2017-08-23] MEDS: FOLIC ACID 1 MG TAB PO SCH (09:00)
[2017-08-23] MEDS: MULTIVITAMINS/MINERALS THERAPEUTIC TAB PO SCH (09:00)
[2017-08-23] MEDS: THIAMINE HCL 100 MG TAB PO SCH (09:00)
[2017-08-23 10:43] LABS: BICARBONATE 22.3 MEQ/L (21.0-32.0); BLOOD UREA NITROGEN 6 MG/DL (7-18); CALCIUM 7.8 MG/DL (8.5-10.1); CHLORIDE 113 MEQ/L (98-107); CREATININE 0.71 MG/DL (0.50-1.00); GLOMERULAR FILTRATION RATE 86 ML/MIN (>89); GLUCOSE,RANDOM 143 MG/DL (74-106); SODIUM (NA) 145 MEQ/L (136-145)
[2017-08-23 10:49] LABS: CHOLESTEROL 144 MG/DL (120-200); CHOLESTEROL/ HDL RATIO 4.05 RATIO; HDL CHOLESTEROL 35.5 MG/DL (40.0-60.0); LDL CHOLESTEROL 89 MG/DL (0-99); TRIGLYCERIDES 98 MG/DL (42-150)
[2017-08-23] MEDS ORDERED: hydrOXYzine HCL 50 MG TAB PO PRN (12:45)
[2017-08-23] MEDS: SERTRALINE HCL 50 MG TAB PO SCH (12:45)
[2017-08-23] MEDS: busPIRone HCL 5 MG TAB PO SCH ×2 (14:00→20:56)
[2017-08-23 15:38] LABS: HEMOGLOBIN A1C 5.4 % (4.3-6.0)
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
[2017-08-23 16:54] VITALS: BP 124/57; PULSE 58; RESP 16; TEMP 98.1; O2SAT 95
[2017-08-23] MEDS ORDERED: diphenhydrAMINE HCL 50 MG CAP PO PRN (21:00)
[2017-08-24 06:00] VITALS: BP 106/68; PULSE 58; RESP 17; TEMP 98; O2SAT 96
[2017-08-24] MEDS: busPIRone HCL 5 MG TAB PO SCH ×3 (06:03→21:08)
--- NOTE | 2017-08-24 08:22 | HHI.PR ---
Subjective Remarks Follow-up visit after attempted overdose on Klonopin and sertraline. Patient is seen and examined in bed resting comfortably in no acute distress. She reports she is feeling much better today. She denies any fevers, chills, nausea , vomiting, diarrhea, shortness of breath, cough or chest pain. She also reports that her dizziness and lightheadedness has resolved. She has no acute concerns or complaints today, nursing does not report any concerns. Objective Vitals Vital Signs Date Time Temp Pulse Resp B/P (MAP) Pulse Ox O2 Delivery O2 Flow Rate FiO2 08/24/17 06:00 98.0 58 17 106/68 (81) 96 08/23/17 16:54 98.1 58 16 124/57 (79) 95 I/O 08/23/17 08/23/17 08/23/17 08/24/17 08/24/17 08/24/17 07:00 15:00 23:00 07:00 15:00 23:00 Intake Total 240 ml 840 ml Balance 240 ml 840 ml Intake Oral 240 ml 840 ml Result Diagram: 08/23/17 0856 Objective Remarks GENERAL: This is a well-nourished, well-developed patient, in no apparent distress resting comfortably in bed. SKIN: Cool and dry. HEAD: Atraumatic. EYES: Pupils equal round and reactive. No scleral icterus. No injection or drainage. ENT: Airway patent. NECK: Trachea midline. CARDIOVASCULAR: Regular rate and rhythm without murmurs, gallops, or rubs. RESPIRATORY: Clear to auscultation. Breath sounds equal bilaterally. No wheezes , rales, or rhonchi. GASTROINTESTINAL: Abdomen soft, non-tender, nondistended. No palpable masses. No guarding. MUSCULOSKELETAL: Extremities without clubbing, cyanosis, or edema. No joint tenderness, effusion, or edema noted. NEUROLOGICAL: Awake and alert, oriented 3. Cranial nerves II through XII grossly intact. Motor and sensory grossly within normal limits. 5/5 muscle strength in all muscle groups. Normal speech. A/P Assessment and Plan 52-year-old female with past medical history significant for agoraphobia, anxiety, and depression who presented to the emergency department on 08/22 after intentionally ingesting "handful" of sertraline and Klonopin. [facility] has been consulted to continue follow-up of patient while she is in medical psychiatry unit. Suicidal attempt/depression -Treatment plan per psychiatry OD attempt on Klonopin and sertraline -CBC from yesterday unremarkable, BMP from 08/23 stable. -Patient continues hemodynamically stable with dizziness resolved DVT prophylaxis-ambulation Discussed with patient and nurse. [facility] will sign off, please reconsult if needed. Bisi Arceo August 24, 2017 08:22
--- NOTE | 2017-08-24 08:54 | HHI.PYPN ---
Subjective Remarks Patient seen for follow, chart reviewed. Discussion nursing staff reported the patient with no physical complaints at this time although feeling somewhat somnolent. Patient was found sitting in hospital bed eating breakfast. Patient states that she had a good visit by her boyfriend yesterday. Patient states that she is feeling embarrassed by her recent suicide attempt and that "things was building up" referring to her moved to [place], and recent argument with her boyfriend but attributed mostly to the argument with her boyfriend had stated to her that he was going to leave her. After visit with patient's boyfriend yesterday she states that he had mentioned he will continue to remain in a relationship with her. She denies any suicide ideations today. Denies any perceptional services or delusions. Review of Systems Except as stated in HPI: all other systems reviewed are Neg Mental Status Examination Appearance: Appropriate Consciousness: Somnolent (Slightly) Orientation: Person, Place, Date/Time Speech: Unremarkable Language: Adequate Fund of Knowledge: Inadequate Attention and Concentration: Adequate Memory: Impaired (Surrounding events of her overdose) Mood: Other ("Okay") Affect: Blunt Thought Process & Associations: Linear, Other ([place]) Thought Content: Appropriate Hallucination Type: None Delusion Type: None Suicidal Ideation: Yes (Denies at this time) Suicidal Plan: No Suicidal Intention: No Homicidal Ideation: No Homicidal Plan: No Homicidal Intention: No Insight: Fair Judgment: Poor Results Labs Labs reviewed Test 08/23/17 08:56 Blood Urea Nitrogen 6 MG/DL Creatinine 0.71 MG/DL Random Glucose 143 MG/DL Calcium Level 7.8 MG/DL Sodium Level 145 MEQ/L Potassium Level 3.5 MEQ/L Chloride Level 113 MEQ/L Carbon Dioxide Level 22.3 MEQ/L Anion Gap 10 MEQ/L Estimat Glomerular Filtration Rate 86 ML/MIN Hemoglobin A1c 5.4 % Triglycerides Level 98 MG/DL Cholesterol Level 144 MG/DL LDL Cholesterol 89 MG/DL HDL Cholesterol 35.5 MG/DL Cholesterol/HDL Ratio 4.05 RATIO Vitals/IOs Vital Signs Date Time Temp Pulse Resp B/P (MAP) Pulse Ox O2 Delivery O2 Flow Rate FiO2 08/24/17 06:00 98.0 58 17 106/68 (74) 96 Assessment & Plan Problem List: (1) Adjustment disorder with depressed mood ICD Codes: F43.21 - Adjustment disorder with depressed mood Assessment & Plan Patient this time noted to be somewhat somnolent this morning but able to express her remorse and embarrassment for her recent suicide attempt. Patient continues to deny suicide ideations stating that she feels that she would never do this again although patient has history of prior suicide attempt. We will continue current treatment. We will continue to monitor mood and behavior. Discharge planning in progress. Justification for Cont. Inpt. At risk for further decompensation if at lower level of care Discharge Planning Patient return back to her residence when psychiatrically stable. Alcides Bermudez MD August 24, 2017 08:54
[2017-08-24] MEDS: SERTRALINE HCL 50 MG TAB PO SCH (09:00)
[2017-08-24] MEDS: THIAMINE HCL 100 MG TAB PO SCH (09:00)
[2017-08-24] MEDS: MULTIVITAMINS/MINERALS THERAPEUTIC TAB PO SCH (09:00)
[2017-08-24] MEDS: FOLIC ACID 1 MG TAB PO SCH (09:00)
[2017-08-24] MEDS ORDERED: PNEUMOCOCCAL POLYVALENT INJ 25 MCG/0.5 ML SYR IM ONE (10:00)
[2017-08-24 18:17] VITALS: BP 107/55; PULSE 58; RESP 16; TEMP 98.1; O2SAT 96
[2017-08-25] MEDS: busPIRone HCL 5 MG TAB PO SCH ×2 (06:11→14:36)
[2017-08-25 06:30] VITALS: BP 115/58; PULSE 50; RESP 18; TEMP 97.8; O2SAT 94
[2017-08-25] MEDS ORDERED: SERTRALINE HCL 50 MG TAB PO SCH (09:00)
[2017-08-25] MEDS: THIAMINE HCL 100 MG TAB PO SCH (09:28)
[2017-08-25] MEDS: FOLIC ACID 1 MG TAB PO SCH (09:29)
[2017-08-25] MEDS: MULTIVITAMINS/MINERALS THERAPEUTIC TAB PO SCH (09:29)
[2017-08-25] MEDS ORDERED: BUSP5TAB PO (14:18)
[2017-08-25] MEDS ORDERED: THIA100 PO (14:18)
[2017-08-25] MEDS ORDERED: THERM PO (14:18)
[2017-08-25] MEDS ORDERED: ZOLO50TA PO (14:18)
[2017-08-25] MEDS ORDERED: FOLI1TAB6 PO (14:18)
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
== END 2017-08-25 16:05 | disposition home or self-care (01) | DRG 881 ==
LOC: H4EA 19:50
PROVIDERS: ADMIT Student in an Organized Health Care Education/Training Program; ATTEND Student in an Organized Health Care Education/Training Program
DX: F43.21 Adjustment disorder with depressed mood (principal); F40.00 Agoraphobia, unspecified; F10.10 Alcohol abuse, uncomplicated; F17.210 Nicotine dependence, cigarettes, uncomplicated; Z91.410 Personal history of adult physical and sexual abuse; Z91.5 Personal history of self-harm
CPT/HCPCS: 80048; 80061; 83036